=== PATIENT | female | born 1995 | race Caucasian/White ===

== ENCOUNTER 2019-07-26 00:47 | Emergency (ER) | payer BC, OTHER ==
[~2019-07-26] VITALS: Ht 157.5 cm; Wt 56.3 kg
[~2019-07-26 00:47] MED LIST: HC.5O30 TOP; HYDR-842 PO
[2019-07-26 00:48] VITALS: Ht 157.5 cm; Wt 56.3 kg
[2019-07-26] MEDS ORDERED: HYDROCORTISONE 1% 28.35 GM OINT TOP ONE (01:00)
[2019-07-26] MEDS ORDERED: hydrOXYzine HCL 25 MG TAB PO ONE (01:00)
[2019-07-26 01:14] VITALS: BP 134/78; PULSE 102; RESP 16
== END 2019-07-26 01:14 | disposition home or self-care (01) ==
LOC: FTE 00:47
DX: S80.862A Insect bite (nonvenomous), left lower leg, initial encounter (principal); W57.XXXA Bitten or stung by nonvenomous insect and other nonvenomous arthropods, initial encounter; Y92.9 Unspecified place or not applicable
CPT/HCPCS: 99283